=== PATIENT | female | born 1990 | race Caucasian/White ===

== ENCOUNTER 2021-08-10 10:31 | Outpatient (RCR) | payer BC, SELFPAY ==
[2021-08-10 12:13] LABS: Hematocrit 38.4 % (37.0-47.0); Hemoglobin 12.9 g/dL (12.0-15.0)
[2021-08-10 12:26] LABS: Glucose 1 Hour PP 50gm Dose 133 mg/dL
[2021-08-10 13:17] LABS: HIV 1/2 Ab P24 Ag Result Negative (Negative)
[2021-08-10 13:38] LABS: Vitamin D 25 Hydroxy 48.6 ng/mL
== END 2021-11-08 23:59 | disposition home or self-care (01) ==
LOC: ANHLAB 10:31
PROVIDERS: PCP Obstetrics & Gynecology Gynecology; Visit Provider Obstetrics & Gynecology Gynecology
DX: Z11.4 Encounter for screening for human immunodeficiency virus [HIV] (principal); Z3A.00 Weeks of gestation of pregnancy not specified; O36.0190 Maternal care for anti-D [Rh] antibodies, unspecified trimester, not applicable or unspecified
CPT/HCPCS: 36415; 82306; 82947; 85014; 85018; 85461; 86703; G0432

== ENCOUNTER 2021-08-17 08:13 | Outpatient (CLI) | payer BC, SELFPAY ==
[2021-08-17 08:53] LABS: Glucose Fasting Gestational 89 mg/dL (>/=95)
[2021-08-17 10:32] LABS: Glucose 1 Hour Gest 149 mg/dL (>/=180)
[2021-08-17 11:28] LABS: Glucose 2 Hour Gest 149 mg/dL (>/= 155)
[2021-08-17 12:26] LABS: Glucose 3 Hour Gest 58 mg/dL (>/=140)
== END 2021-08-17 08:14 | disposition home or self-care (01) ==
PROVIDERS: PCP Obstetrics & Gynecology Gynecology; Visit Provider Obstetrics & Gynecology Gynecology
DX: R73.09 Other abnormal glucose (principal)
CPT/HCPCS: 36415; 82951; 82952